=== PATIENT | female | born 1995 | race African-American/Black ===

== ENCOUNTER 2017-05-02 11:28 | Emergency (ER) | payer MEDICAID, SELFPAY ==
[2017-05-02] MEDS: IBUPROFEN 800 MG TAB PO ×2 (12:40)
[2017-05-02 12:46] LABS: KETONE, URINE AUTO RFX NEGATIVE (NEGATIVE); LEUKOCYTE ESTERASE UR AUTO RFX NEGATIVE (NEGATIVE); MUCUS, URINE RFX SMALL (NEGATIVE); NITRITE, URINE AUTO RFX NEGATIVE (NEGATIVE); RBC, URINE AUTO RFX 1 /HPF (0-3); SPECIFIC GRAVITY UR AUTO RFX 1.021 (1.002-1.035); SQUAM EPITHELIAL CELL UR AURFX 16 /HPF (0-6); WBC, URINE AUTO RFX 3 /HPF (0-3)
[2017-05-02 14:22] LABS: CHLAMYDIA DNA AMPLIFICATION NEGATIVE (NEGATIVE); GC DNA AMPLIFICATION NEGATIVE (NEGATIVE)
== END 2017-05-02 14:09 | disposition home or self-care (01) ==
LOC: M ED 11:28
DX: N76.0 Acute vaginitis (principal)
CPT/HCPCS: 76856

== ENCOUNTER → 2017-06-04 | Outpatient (REF) | payer MEDICAID ==
[2017-06-04 13:52] LABS: HEMATOCRIT 30.9 % (36.0-47.0); HEMOGLOBIN 9.4 g/dl (12.0-15.5); MEAN CORPUSCULAR HEMOGLOBIN 22.2 pg (27.0-33.0); MEAN CORPUSCULAR HGB CONC 30.4 g/dl (32.0-36.5); PLATELET COUNT, AUTOMATED 214 10^3/uL (150-450); RED BLOOD COUNT 4.23 10^6/uL (4.00-5.40); RED CELL DISTRIBUTION WIDTH 19.9 % (11.5-14.5); WHITE BLOOD COUNT 7.7 10^3/uL (4.0-10.0)
[2017-06-04 14:57] LABS: HCG, SERUM QUANTITATIVE 69211 MIU/ML
[2017-06-05 12:37] LABS: RUBELLA IgG QUALITATIVE IMMUNE (IMMUNE)
[2017-06-05 12:57] LABS: HBsAg Prenatal NEGATIVE (NEGATIVE)
[2017-06-05 13:05] LABS: HEPATITIS C VIRUS ABY INDEX 0.1 INDEX (<0.8)
[2017-06-05 13:06] LABS: HIV 1&2 SCREEN CENTAUR NEGATIVE (NEGATIVE)
== END ==
LOC: M LAB REF 13:13
DX: O36.80X0 Pregnancy with inconclusive fetal viability, not applicable or unspecified (principal)